=== PATIENT | female | born 1960 | race African-American/Black ===

== ENCOUNTER 2018-06-02 16:53 | Inpatient (IN) | payer MEDICAID ==
[~2018-06-02] VITALS: Ht 172.7 cm; Wt 64.9 kg
[2018-06-02] MEDS ORDERED: HYDRALAZINE HCL 100MG TABLET PO ONE (19:00)
[2018-06-02 19:15] LABS: BASOPHILS % 0.7 % (0.0-2.0); EOSINOPHILS % 1.7 % (0.0-5.0); HEMOGLOBIN. 12.5 g/dL (14.0-18.0); LYMPHOCYTES % 22.2 % (20.0-50.0); MEAN CORPUSCULAR HEMOGLOBIN 27.6 pg (28.0-32.0); MEAN CORPUSCULAR VOLUME 86.4 fL (80.0-94.0); MEAN PLATELET VOLUME 8.7 fl (7.4-10.4); MONOCYTES % 8.4 % (2.0-8.0); PLATELET 325 x1000/uL (130-400); RED BLOOD CELL COUNT 4.52 mill/uL (4.7-6.1); RED CELL DISTRIBUTION WIDTH 18.6 % (11.6-14.6)
[2018-06-02 19:22] LABS: PROTHROMBIN TIME 9.7 sec (9.1-11.1)
[2018-06-02 19:26] LABS: CHLORIDE 111 mEq/L (98-107)
[2018-06-02] MEDS ORDERED: HYDRALAZINE 20MG/ML VIAL IV ONE (20:30)
[2018-06-02] MEDS ORDERED: HYDROCODONE/ACETAMINOPHEN 5/325MG TABLET PO ONE (21:00)
[2018-06-02] MEDS ORDERED: ONDANSETRON HCL 4MG/2ML INJ IV PRN (22:00)
[2018-06-02] MEDS ORDERED: HYDROCODONE/ACETAMINOPHEN 5/325MG TABLET PO PRN (22:00)
[2018-06-02] MEDS ORDERED: ACETAMINOPHEN 325MG TABLET PO PRN (22:00)
[2018-06-02] MEDS ORDERED: DOCUSATE SODIUM 100MG CAPSULE PO PRN (22:00)
[2018-06-02] MEDS ORDERED: IPRATROPIUM/ALBUTEROL 0.5-3(2.5)MG/3ML NEB INH PRN (22:00)
[2018-06-02 23:35] LABS: CREATINE KINASE MB FRACTION 6.5 ng/mL (0.5-3.6)
[2018-06-02 23:40] LABS: PHOSPHORUS 9.4 mg/dL (2.5-4.9)
[2018-06-03] MEDS: CLONIDINE 0.1MG TABLET PO PRN ×2 (05:46→20:36)
[2018-06-03 06:10] LABS: BASOPHILS % 1.5 % (0.0-2.0); EOSINOPHILS % 1.4 % (0.0-5.0); HEMATOCRIT. 39.9 % (36.0-48.0); HEMOGLOBIN. 12.8 g/dL (12.0-16.0); LYMPHOCYTES % 28.3 % (20.0-50.0); MEAN CORPUSCULAR HEMOGLOBIN 27.7 pg (28.0-32.0); MEAN CORPUSCULAR VOLUME 86.4 fL (81.0-99.0); MEAN PLATELET VOLUME 8.6 fl (7.4-10.4); MONOCYTES % 7.5 % (2.0-8.0); NEUTROPHILS % 61.3 % (40.0-76.0); PLATELET 313 x1000/uL (130-400); RED BLOOD CELL COUNT 4.62 mill/uL (4.2-5.4)
[2018-06-03 06:36] LABS: CREATINE KINASE MB FRACTION 8.2 ng/mL (0.5-3.6)
[2018-06-03] MEDS ORDERED: ASPIRIN 81MG TABLET PO ONE (07:15)
[2018-06-03 08:05] VITALS: BP 107/83
[2018-06-03] MEDS: FOLIC ACID/VITAMIN B COMP W-C TABLET PO SCH (09:00)
[2018-06-03 12:00] VITALS: BP 130/69
[2018-06-03] MEDS ORDERED: HEPARIN SODIUM 1,000 UNIT/1ML VIAL IV SCH (12:45)
[2018-06-03] MEDS: CALCIUM ACETATE 667MG CAPSULE PO SCH ×2 (13:10→18:30)
[2018-06-03 16:00] VITALS: BP 143/80
[2018-06-03] MEDS ORDERED: ASPI-1159 PO (17:29)
[2018-06-03] MEDS ORDERED: LISI10TA5 PO (17:29)
[2018-06-03] MEDS ORDERED: SIMV10TA6 PO (17:29)
[2018-06-03] MEDS: INSULIN LISPRO 100 UNITS/ML SUBCUT SCH ×2 (18:10→20:38)
[2018-06-03] MEDS ORDERED: DEXTROSE 50% WATER 50ML SYRINGE IV PRN (18:15)
[2018-06-03 18:51] VITALS: BP 186/84
[2018-06-03 20:00] VITALS: BP 181/81
[2018-06-03] MEDS: BLOOD SUGAR DIAGNOSTIC STRIP TEST SCH (20:25)
[2018-06-03] MEDS: ASPIRIN 81MG TABLET PO SCH (20:36)
[2018-06-04] VITALS (7 sets, daily range): BP systolic 133–191; BP diastolic 57–97
[2018-06-04] MEDS: BLOOD SUGAR DIAGNOSTIC STRIP TEST SCH ×4 (07:19→21:24)
[2018-06-04] MEDS: INSULIN LISPRO 100 UNITS/ML SUBCUT SCH ×4 (08:10→21:31)
[2018-06-04 08:16] LABS: BASOPHILS % 1.2 % (0.0-2.0); HEMATOCRIT. 39.4 % (36.0-48.0); HEMOGLOBIN. 12.7 g/dL (12.0-16.0); LYMPHOCYTES % 31.5 % (20.0-50.0); MEAN CORPUSCULAR HEMOGLOBIN 27.7 pg (28.0-32.0); MEAN CORPUSCULAR VOLUME 85.9 fL (81.0-99.0); MEAN PLATELET VOLUME 8.7 fl (7.4-10.4); MONOCYTES % 8.9 % (2.0-8.0); NEUTROPHILS % 56.4 % (40.0-76.0); PLATELET 291 x1000/uL (130-400); RED BLOOD CELL COUNT 4.58 mill/uL (4.2-5.4); RED CELL DISTRIBUTION WIDTH 18.4 % (11.6-14.6)
[2018-06-04] MEDS: FOLIC ACID/VITAMIN B COMP W-C TABLET PO SCH (09:53)
[2018-06-04] MEDS: CALCIUM ACETATE 667MG CAPSULE PO SCH ×3 (09:53→18:38)
[2018-06-04] MEDS: ASPIRIN 81MG TABLET PO SCH (09:53)
[2018-06-04] MEDS: CLONIDINE 0.1MG TABLET PO PRN ×3 (09:57→19:54)
[2018-06-04] MEDS: DILTIAZEM HCL 30MG TABLET PO SCH ×2 (14:00→21:30)
[2018-06-04] MEDS ORDERED: DILT30TA38 PO (16:23)
[2018-06-04] MEDS ORDERED: NEPVIT PO (16:23)
[2018-06-04] MEDS ORDERED: CALC667C PO (16:23)
[2018-06-04] MEDS ORDERED: HYDRALAZINE 20MG/ML VIAL IV PRN (21:15)
== END 2018-06-04 23:45 | disposition home or self-care (01) | DRG 199 ==
LOC: ER 20:27 → 7WST 20:49 → EDBEDREQ 20:53 → EDBEDREQTM 20:53 → ENRESERV 06-03 07:26
PROVIDERS: ADMIT Internal Medicine; ATTEND Internal Medicine
PROC: 5A1D70Z Performance of Urinary Filtration, Intermittent, Less than 6 Hours Per Day (ICD-10-PCS; principal; 2018-06-03)
DX: I16.0 Hypertensive urgency (principal); E43 Unspecified severe protein-calorie malnutrition; E11.22 Type 2 diabetes mellitus with diabetic chronic kidney disease; E83.39 Other disorders of phosphorus metabolism; E11.51 Type 2 diabetes mellitus with diabetic peripheral angiopathy without gangrene; I08.3 Combined rheumatic disorders of mitral, aortic and tricuspid valves; E87.70 Fluid overload, unspecified; D64.9 Anemia, unspecified; N18.6 End stage renal disease; E78.5 Hyperlipidemia, unspecified; E87.8 Other disorders of electrolyte and fluid balance, not elsewhere classified; F17.200 Nicotine dependence, unspecified, uncomplicated; I13.11 Hypertensive heart and chronic kidney disease without heart failure, with stage 5 chronic kidney disease, or end stage renal disease; Z86.73 Personal history of transient ischemic attack (TIA), and cerebral infarction without residual deficits; Z99.2 Dependence on renal dialysis; Z91.19 Patient's noncompliance with other medical treatment and regimen; Z68.21 Body mass index [BMI] 21.0-21.9, adult; Z71.6 Tobacco abuse counseling
CPT/HCPCS: 36415; 71045; 80048; 80061; 82550; 82553; 82962; 83036; 83735; 84100; 84443; 84484; 93005; 93306; 93970; 96374; 99291; 99406; J0360; J1644; J1815; J7030

== ENCOUNTER 2018-06-22 20:42 | Inpatient (IN) | payer MEDICAID ==
[~2018-06-22] VITALS: Ht 172.7 cm; Wt 63.1 kg
[~2018-06-22 20:42] MED LIST: ASPI-1159 PO; CALC667C PO; DILT30TA38 PO; NEPVIT PO; SIMV10TA6 PO
[2018-06-22] MEDS ORDERED: ONDANSETRON HCL 4MG/2ML INJ IV STA (23:56)
[2018-06-22] MEDS ORDERED: MORPHINE SULFATE 4 MG/ML CPJ (NOT FOR IM USE) IV STA (23:56)
[2018-06-23] MEDS ORDERED: ENALAPRIL 2.5MG/2ML VIAL 2ML IV ONE
[2018-06-23 01:01] LABS: BASOPHILS % 0.6 % (0.0-2.0); EOSINOPHILS % 1.3 % (0.0-5.0); HEMATOCRIT. 37.7 % (36.0-48.0); HEMOGLOBIN. 12.4 g/dL (12.0-16.0); LYMPHOCYTES % 27.3 % (20.0-50.0); MEAN CORPUSCULAR HEMOGLOBIN 28.1 pg (28.0-32.0); MEAN CORPUSCULAR VOLUME 85.5 fL (81.0-99.0); MEAN PLATELET VOLUME 8.7 fl (7.4-10.4); MONOCYTES % 8.4 % (2.0-8.0); NEUTROPHILS % 62.4 % (40.0-76.0); PLATELET 243 x1000/uL (130-400); RED BLOOD CELL COUNT 4.41 mill/uL (4.2-5.4); RED CELL DISTRIBUTION WIDTH 16.9 % (11.6-14.6)
[2018-06-23 01:07] LABS: CHLORIDE 102 mEq/L (98-107)
[2018-06-23] MEDS ORDERED: CLONIDINE 0.2MG TABLET PO ONE (02:45)
[2018-06-23] MEDS ORDERED: HYDROCODONE/ACETAMINOPHEN 5/325MG TABLET PO ONE (02:45)
[2018-06-23 13:30] VITALS: BP 167/84
[2018-06-23 16:00] VITALS: BP 126/80
[2018-06-23] MEDS ORDERED: MAGNESIUM/ALUMINUM HYDROXIDE/SIMETHICONE 30ML UDC PO PRN (16:15)
[2018-06-23] MEDS ORDERED: ONDANSETRON HCL 4MG/2ML INJ IV PRN (16:15)
[2018-06-23] MEDS ORDERED: IPRATROPIUM/ALBUTEROL 0.5-3(2.5)MG/3ML NEB INH PRN (16:15)
[2018-06-23 17:23] VITALS: BP 111/42
[2018-06-23] MEDS: HYDROCODONE/ACETAMINOPHEN 5/325MG TABLET PO PRN (17:27)
[2018-06-23] MEDS: CALCIUM ACETATE 667MG CAPSULE PO SCH (19:08)
[2018-06-23] MEDS: SULFACETAMIDE SODIUM 10% OPHTH DROPS 15ML LEFTEYE SCH ×2 (19:09→21:02)
[2018-06-23] MEDS ORDERED: DEXTROSE 50% WATER 50ML SYRINGE IV PRN (19:45)
[2018-06-23 20:00] VITALS: BP 169/99
[2018-06-23] MEDS: BLOOD SUGAR DIAGNOSTIC STRIP TEST SCH (20:20)
[2018-06-23] MEDS: INSULIN LISPRO 100 UNITS/ML SUBCUT SCH (21:00)
[2018-06-24 00:15] VITALS: BP 123/77
[2018-06-24 04:30] VITALS: BP 154/92
[2018-06-24] MEDS: HYDROCODONE/ACETAMINOPHEN 5/325MG TABLET PO PRN ×2 (05:32→21:06)
[2018-06-24] MEDS: INSULIN LISPRO 100 UNITS/ML SUBCUT SCH ×4 (06:34→21:15)
[2018-06-24] MEDS: BLOOD SUGAR DIAGNOSTIC STRIP TEST SCH ×4 (06:34→21:03)
[2018-06-24 07:07] LABS: BASOPHILS % 0.6 % (0.0-2.0); EOSINOPHILS % 0.9 % (0.0-5.0); HEMATOCRIT. 38.2 % (36.0-48.0); HEMOGLOBIN. 12.5 g/dL (12.0-16.0); LYMPHOCYTES % 36.8 % (20.0-50.0); MEAN CORPUSCULAR HEMOGLOBIN 27.7 pg (28.0-32.0); MEAN CORPUSCULAR VOLUME 84.8 fL (81.0-99.0); MEAN PLATELET VOLUME 8.5 fl (7.4-10.4); MONOCYTES % 9.1 % (2.0-8.0); NEUTROPHILS % 52.6 % (40.0-76.0); PLATELET 240 x1000/uL (130-400); RED CELL DISTRIBUTION WIDTH 16.5 % (11.6-14.6)
[2018-06-24 07:39] LABS: PHOSPHORUS 5.1 mg/dL (2.5-4.9)
[2018-06-24 07:43] LABS: T4 FREE 0.97 ng/dL (0.76-1.46)
[2018-06-24 08:00] VITALS: BP 149/73
[2018-06-24] MEDS: CALCIUM ACETATE 667MG CAPSULE PO SCH ×3 (08:21→17:52)
[2018-06-24] MEDS: FOLIC ACID/VITAMIN B COMP W-C TABLET PO SCH (08:21)
[2018-06-24] MEDS: SULFACETAMIDE SODIUM 10% OPHTH DROPS 15ML LEFTEYE SCH ×4 (08:23→20:57)
[2018-06-24] MEDS: ASPIRIN 81MG TABLET PO SCH (08:23)
[2018-06-24] MEDS ORDERED: DILTIAZEM HCL 30MG TABLET PO SCH (09:00)
[2018-06-24] MEDS ORDERED: DIPHENHYDRAMINE 50MG/ML VIAL IM PRN (11:00)
[2018-06-24] MEDS: DILTIAZEM HCL 30MG TABLET PO SCH ×2 (11:37→17:52)
[2018-06-24 12:00] VITALS: BP 140/67
[2018-06-24 12:04] LABS: HEPATITIS B SURFACE ANTIGEN NEGATIVE
[2018-06-24 16:00] VITALS: BP 154/76
[2018-06-24 19:45] VITALS: BP 139/64
[2018-06-25] VITALS: BP 142/59
[2018-06-25 03:45] VITALS: BP 137/86
[2018-06-25] MEDS: SULFACETAMIDE SODIUM 10% OPHTH DROPS 15ML LEFTEYE SCH ×2 (03:46→09:00)
[2018-06-25] MEDS: HYDROCODONE/ACETAMINOPHEN 5/325MG TABLET PO PRN ×2 (03:52→17:51)
[2018-06-25] MEDS: DILTIAZEM HCL 30MG TABLET PO SCH ×5 (06:28→23:05)
[2018-06-25] MEDS: BLOOD SUGAR DIAGNOSTIC STRIP TEST SCH ×4 (06:30→21:06)
[2018-06-25] MEDS: INSULIN LISPRO 100 UNITS/ML SUBCUT SCH ×4 (06:31→21:19)
[2018-06-25 08:00] VITALS: BP 154/77
[2018-06-25] MEDS: CALCIUM ACETATE 667MG CAPSULE PO SCH ×3 (09:00→17:42)
[2018-06-25] MEDS: FOLIC ACID/VITAMIN B COMP W-C TABLET PO SCH (09:00)
[2018-06-25] MEDS: ASPIRIN 81MG TABLET PO SCH (09:00)
[2018-06-25 12:00] VITALS: BP 120/76
[2018-06-25] MEDS: SULFACETAMIDE SODIUM 10% OPHTH DROPS 15ML BOTHEYE SCH ×3 (14:45→21:06)
[2018-06-25 17:00] VITALS: BP 132/72
[2018-06-25 20:00] VITALS: BP 168/88
[2018-06-26 04:00] VITALS: BP 188/87
[2018-06-26] MEDS: DILTIAZEM HCL 30MG TABLET PO SCH (05:19)
[2018-06-26] MEDS: HYDROCODONE/ACETAMINOPHEN 5/325MG TABLET PO PRN ×2 (06:12→16:29)
[2018-06-26] MEDS: BLOOD SUGAR DIAGNOSTIC STRIP TEST SCH ×4 (06:32→21:37)
[2018-06-26] MEDS: INSULIN LISPRO 100 UNITS/ML SUBCUT SCH ×4 (07:50→21:00)
[2018-06-26 07:54] LABS: BASOPHILS % 0.6 % (0.0-2.0); EOSINOPHILS % 1.1 % (0.0-5.0); HEMATOCRIT. 36.5 % (36.0-48.0); HEMOGLOBIN. 11.9 g/dL (12.0-16.0); LYMPHOCYTES % 25.9 % (20.0-50.0); MEAN CORPUSCULAR HEMOGLOBIN 27.6 pg (28.0-32.0); MEAN PLATELET VOLUME 8.6 fl (7.4-10.4); MONOCYTES % 9.8 % (2.0-8.0); NEUTROPHILS % 62.6 % (40.0-76.0); PLATELET 251 x1000/uL (130-400); RED BLOOD CELL COUNT 4.29 mill/uL (4.2-5.4); RED CELL DISTRIBUTION WIDTH 17.1 % (11.6-14.6)
[2018-06-26 08:00] VITALS: BP 163/76
[2018-06-26] MEDS: ASPIRIN 81MG TABLET PO SCH (08:58)
[2018-06-26] MEDS: FOLIC ACID/VITAMIN B COMP W-C TABLET PO SCH (08:59)
[2018-06-26] MEDS: CALCIUM ACETATE 667MG CAPSULE PO SCH ×3 (08:59→17:37)
[2018-06-26] MEDS: SULFACETAMIDE SODIUM 10% OPHTH DROPS 15ML BOTHEYE SCH ×4 (08:59→21:36)
[2018-06-26] MEDS: LOSARTAN POTASSIUM 50 MG TABLET PO SCH ×2 (10:45→21:36)
[2018-06-26 12:00] VITALS: BP 164/87
[2018-06-26] MEDS: DILTIAZEM HCL 180MG CAPSULE CD 24HR PO SCH (15:51)
[2018-06-26 16:00] VITALS: BP 117/70
[2018-06-26 20:47] VITALS: BP 153/76
[2018-06-26] MEDS: DIPHENHYDRAMINE 50MG/ML VIAL IV PRN (22:21)
[2018-06-27] VITALS: BP 159/77
[2018-06-27 04:00] VITALS: BP 150/72
[2018-06-27] MEDS: BLOOD SUGAR DIAGNOSTIC STRIP TEST SCH ×4 (06:31→21:00)
[2018-06-27] MEDS: INSULIN LISPRO 100 UNITS/ML SUBCUT SCH ×4 (07:50→21:00)
[2018-06-27 08:17] VITALS: BP 144/59
[2018-06-27] MEDS: LOSARTAN POTASSIUM 50 MG TABLET PO SCH ×2 (09:24→22:01)
[2018-06-27] MEDS: CALCIUM ACETATE 667MG CAPSULE PO SCH ×3 (09:24→19:13)
[2018-06-27] MEDS: FOLIC ACID/VITAMIN B COMP W-C TABLET PO SCH (09:24)
[2018-06-27] MEDS: DILTIAZEM HCL 180MG CAPSULE CD 24HR PO SCH (09:24)
[2018-06-27] MEDS: ASPIRIN 81MG TABLET PO SCH (09:24)
[2018-06-27] MEDS: SULFACETAMIDE SODIUM 10% OPHTH DROPS 15ML BOTHEYE SCH ×4 (09:24→22:03)
[2018-06-27 12:03] VITALS: BP 154/85
[2018-06-27] MEDS: HYDROCODONE/ACETAMINOPHEN 5/325MG TABLET PO PRN ×2 (15:00→22:51)
[2018-06-27] MEDS: GENTAMICIN 0.3% OPHTH DROPS 5ML LEFTEYE SCH ×3 (15:00→22:03)
[2018-06-27 16:36] VITALS: BP 141/69
[2018-06-27 20:38] VITALS: BP 165/66
[2018-06-28] VITALS: BP 192/84
[2018-06-28 04:00] VITALS: BP 156/79
[2018-06-28] MEDS: GENTAMICIN 0.3% OPHTH DROPS 5ML LEFTEYE SCH ×6 (04:35→21:34)
[2018-06-28] MEDS: BLOOD SUGAR DIAGNOSTIC STRIP TEST SCH ×4 (07:20→21:00)
[2018-06-28 08:00] VITALS: BP 132/78
[2018-06-28] MEDS: DILTIAZEM HCL 180MG CAPSULE CD 24HR PO SCH (09:00)
[2018-06-28] MEDS: SULFACETAMIDE SODIUM 10% OPHTH DROPS 15ML BOTHEYE SCH ×4 (09:24→21:33)
[2018-06-28] MEDS: LOSARTAN POTASSIUM 50 MG TABLET PO SCH ×2 (09:25→21:32)
[2018-06-28] MEDS: CALCIUM ACETATE 667MG CAPSULE PO SCH ×3 (09:25→18:18)
[2018-06-28] MEDS: FOLIC ACID/VITAMIN B COMP W-C TABLET PO SCH (09:25)
[2018-06-28] MEDS: INSULIN LISPRO 100 UNITS/ML SUBCUT SCH ×4 (09:31→21:56)
[2018-06-28 10:41] LABS: BASOPHILS % 0.9 % (0.0-2.0); EOSINOPHILS % 1.5 % (0.0-5.0); HEMATOCRIT. 38.9 % (36.0-48.0); HEMOGLOBIN. 12.5 g/dL (12.0-16.0); LYMPHOCYTES % 24.1 % (20.0-50.0); MEAN CORPUSCULAR HEMOGLOBIN 27.5 pg (28.0-32.0); MEAN CORPUSCULAR VOLUME 85.3 fL (81.0-99.0); MEAN PLATELET VOLUME 8.9 fl (7.4-10.4); MONOCYTES % 10.4 % (2.0-8.0); NEUTROPHILS % 63.1 % (40.0-76.0); PLATELET 248 x1000/uL (130-400); RED BLOOD CELL COUNT 4.56 mill/uL (4.2-5.4); RED CELL DISTRIBUTION WIDTH 16.9 % (11.6-14.6)
[2018-06-28] MEDS: DIPHENHYDRAMINE 50MG/ML VIAL IV PRN (12:42)
[2018-06-28 16:00] VITALS: BP 130/79
[2018-06-28] MEDS: PREDNISOLONE ACETATE 1% OPHTH DROPS 1ML LEFTEYE SCH (18:13)
[2018-06-28] MEDS: ASPIRIN 81MG TABLET PO SCH (18:18)
[2018-06-28 20:00] VITALS: BP 168/96
[2018-06-29] VITALS (7 sets, daily range): BP systolic 111–164; BP diastolic 67–87
[2018-06-29] MEDS: PREDNISOLONE ACETATE 1% OPHTH DROPS 1ML LEFTEYE SCH ×4 (01:35→17:46)
[2018-06-29] MEDS: GENTAMICIN 0.3% OPHTH DROPS 5ML LEFTEYE SCH ×6 (06:36→20:40)
[2018-06-29] MEDS: BLOOD SUGAR DIAGNOSTIC STRIP TEST SCH ×4 (06:37→20:44)
[2018-06-29] MEDS: INSULIN LISPRO 100 UNITS/ML SUBCUT SCH ×4 (07:50→20:44)
[2018-06-29] MEDS: DILTIAZEM HCL 180MG CAPSULE CD 24HR PO SCH (08:57)
[2018-06-29] MEDS: ASPIRIN 81MG TABLET PO SCH (08:57)
[2018-06-29] MEDS: CALCIUM ACETATE 667MG CAPSULE PO SCH ×3 (08:57→17:45)
[2018-06-29] MEDS: LOSARTAN POTASSIUM 50 MG TABLET PO SCH ×2 (08:57→20:39)
[2018-06-29] MEDS: FOLIC ACID/VITAMIN B COMP W-C TABLET PO SCH (08:58)
[2018-06-29] MEDS: SULFACETAMIDE SODIUM 10% OPHTH DROPS 15ML BOTHEYE SCH ×4 (08:58→20:40)
[2018-06-29] MEDS: ACETAMINOPHEN 325MG TABLET PO PRN (14:35)
[2018-06-29] MEDS: HYDROCODONE/ACETAMINOPHEN 5/325MG TABLET PO PRN ×2 (18:17→23:46)
[2018-06-30] VITALS (7 sets, daily range): BP systolic 138–177; BP diastolic 69–96
[2018-06-30] MEDS: CLONIDINE 0.1MG TABLET PO PRN (01:01)
[2018-06-30] MEDS: GENTAMICIN 0.3% OPHTH DROPS 5ML LEFTEYE SCH ×6 (01:03→20:43)
[2018-06-30] MEDS: PREDNISOLONE ACETATE 1% OPHTH DROPS 1ML LEFTEYE SCH ×4 (01:03→17:52)
[2018-06-30] MEDS: BLOOD SUGAR DIAGNOSTIC STRIP TEST SCH ×4 (06:38→21:12)
[2018-06-30] MEDS: INSULIN LISPRO 100 UNITS/ML SUBCUT SCH ×4 (07:50→21:11)
[2018-06-30] MEDS: DILTIAZEM HCL 180MG CAPSULE CD 24HR PO SCH (09:00)
[2018-06-30] MEDS: LOSARTAN POTASSIUM 50 MG TABLET PO SCH ×2 (09:00→20:41)
[2018-06-30] MEDS: ASPIRIN 81MG TABLET PO SCH (09:42)
[2018-06-30] MEDS: CALCIUM ACETATE 667MG CAPSULE PO SCH ×3 (09:42→17:52)
[2018-06-30] MEDS: FOLIC ACID/VITAMIN B COMP W-C TABLET PO SCH (09:42)
[2018-06-30] MEDS: SULFACETAMIDE SODIUM 10% OPHTH DROPS 15ML BOTHEYE SCH ×4 (09:43→20:44)
[2018-06-30 11:49] LABS: HEMATOCRIT. 37.7 % (36.0-48.0); HEMOGLOBIN. 12.3 g/dL (12.0-16.0); LYMPHOCYTES % 27.4 % (20.0-50.0); MEAN CORPUSCULAR HEMOGLOBIN 27.5 pg (28.0-32.0); MEAN CORPUSCULAR VOLUME 84.3 fL (81.0-99.0); MEAN PLATELET VOLUME 8.7 fl (7.4-10.4); MONOCYTES % 7.8 % (2.0-8.0); NEUTROPHILS % 62.8 % (40.0-76.0); PLATELET 201 x1000/uL (130-400); RED BLOOD CELL COUNT 4.47 mill/uL (4.2-5.4); RED CELL DISTRIBUTION WIDTH 16.4 % (11.6-14.6)
[2018-06-30] MEDS: HYDROCODONE/ACETAMINOPHEN 5/325MG TABLET PO PRN ×2 (14:32→20:42)
[2018-07-01] VITALS: BP 127/63
[2018-07-01] MEDS: DOCUSATE SODIUM 100MG CAPSULE PO PRN ×3 (01:40→22:47)
[2018-07-01] MEDS: GENTAMICIN 0.3% OPHTH DROPS 5ML LEFTEYE SCH ×6 (01:41→20:59)
[2018-07-01] MEDS: PREDNISOLONE ACETATE 1% OPHTH DROPS 1ML LEFTEYE SCH ×4 (01:41→18:08)
[2018-07-01 04:00] VITALS: BP 148/86
[2018-07-01] MEDS: CALCIUM ACETATE 667MG CAPSULE PO SCH ×3 (07:05→18:08)
[2018-07-01] MEDS: BLOOD SUGAR DIAGNOSTIC STRIP TEST SCH ×4 (07:11→20:35)
[2018-07-01] MEDS: INSULIN LISPRO 100 UNITS/ML SUBCUT SCH ×4 (07:11→21:01)
[2018-07-01 08:00] VITALS: BP 177/78
[2018-07-01] MEDS: LOSARTAN POTASSIUM 50 MG TABLET PO SCH ×2 (09:08→21:00)
[2018-07-01] MEDS: FOLIC ACID/VITAMIN B COMP W-C TABLET PO SCH (09:08)
[2018-07-01] MEDS: SULFACETAMIDE SODIUM 10% OPHTH DROPS 15ML BOTHEYE SCH ×4 (09:08→20:59)
[2018-07-01] MEDS: DILTIAZEM HCL 180MG CAPSULE CD 24HR PO SCH (09:08)
[2018-07-01] MEDS: ASPIRIN 81MG TABLET PO SCH (09:08)
[2018-07-01 12:45] LABS: BASOPHILS % 0.8 % (0.0-2.0); EOSINOPHILS % 0.9 % (0.0-5.0); HEMATOCRIT. 37.5 % (36.0-48.0); LYMPHOCYTES % 21.3 % (20.0-50.0); MEAN CORPUSCULAR HEMOGLOBIN 27.2 pg (28.0-32.0); MEAN CORPUSCULAR VOLUME 85.2 fL (81.0-99.0); MEAN PLATELET VOLUME 8.8 fl (7.4-10.4); MONOCYTES % 8.4 % (2.0-8.0); NEUTROPHILS % 68.6 % (40.0-76.0); PLATELET 239 x1000/uL (130-400); RED CELL DISTRIBUTION WIDTH 16.6 % (11.6-14.6)
[2018-07-01 16:00] VITALS: BP_SYST 147; BP_SYST 165; BP_DIAS 75; BP_DIAS 88
[2018-07-01] MEDS: HYDROCODONE/ACETAMINOPHEN 5/325MG TABLET PO PRN ×2 (16:28→22:48)
[2018-07-01 20:00] VITALS: BP 131/74
[2018-07-01 20:02] VITALS: BP 131/74
[2018-07-02] VITALS: BP 166/67
[2018-07-02] MEDS: PREDNISOLONE ACETATE 1% OPHTH DROPS 1ML LEFTEYE SCH ×4 (00:43→17:47)
[2018-07-02 00:50] VITALS: BP 159/72
[2018-07-02] MEDS: GENTAMICIN 0.3% OPHTH DROPS 5ML LEFTEYE SCH ×6 (02:12→22:08)
[2018-07-02 04:00] VITALS: BP 131/75
[2018-07-02] MEDS: BLOOD SUGAR DIAGNOSTIC STRIP TEST SCH ×4 (06:06→20:54)
[2018-07-02 06:34] LABS: BASOPHILS % 0.9 % (0.0-2.0); EOSINOPHILS % 0.9 % (0.0-5.0); HEMATOCRIT. 35.1 % (36.0-48.0); HEMOGLOBIN. 11.3 g/dL (12.0-16.0); MEAN CORPUSCULAR HEMOGLOBIN 27.4 pg (28.0-32.0); MEAN CORPUSCULAR VOLUME 84.8 fL (81.0-99.0); MEAN PLATELET VOLUME 8.9 fl (7.4-10.4); MONOCYTES % 10.5 % (2.0-8.0); NEUTROPHILS % 58.7 % (40.0-76.0); PLATELET 238 x1000/uL (130-400); RED BLOOD CELL COUNT 4.14 mill/uL (4.2-5.4); RED CELL DISTRIBUTION WIDTH 16.8 % (11.6-14.6)
[2018-07-02] MEDS: INSULIN LISPRO 100 UNITS/ML SUBCUT SCH ×4 (07:47→20:56)
[2018-07-02 08:00] VITALS: BP 122/56
[2018-07-02] MEDS: DILTIAZEM HCL 180MG CAPSULE CD 24HR PO SCH (08:16)
[2018-07-02] MEDS: ASPIRIN 81MG TABLET PO SCH (08:16)
[2018-07-02] MEDS: LOSARTAN POTASSIUM 50 MG TABLET PO SCH ×2 (08:16→20:54)
[2018-07-02] MEDS: FOLIC ACID/VITAMIN B COMP W-C TABLET PO SCH (08:16)
[2018-07-02] MEDS: CALCIUM ACETATE 667MG CAPSULE PO SCH ×3 (08:16→17:47)
[2018-07-02] MEDS: SULFACETAMIDE SODIUM 10% OPHTH DROPS 15ML BOTHEYE SCH ×2 (08:17→13:04)
[2018-07-02] MEDS: HYDROCODONE/ACETAMINOPHEN 5/325MG TABLET PO PRN (16:14)
[2018-07-02] MEDS: CLONIDINE 0.1MG TABLET PO PRN (16:46)
[2018-07-02 20:00] VITALS: BP 169/82
[2018-07-03] VITALS: BP 180/74
[2018-07-03] MEDS: CLONIDINE 0.1MG TABLET PO PRN (00:52)
[2018-07-03] MEDS: PREDNISOLONE ACETATE 1% OPHTH DROPS 1ML LEFTEYE SCH ×4 (00:52→18:17)
[2018-07-03] MEDS: GENTAMICIN 0.3% OPHTH DROPS 5ML LEFTEYE SCH ×5 (01:00→22:07)
[2018-07-03 04:00] VITALS: BP 141/77
[2018-07-03] MEDS: BLOOD SUGAR DIAGNOSTIC STRIP TEST SCH ×4 (06:20→20:49)
[2018-07-03 06:27] LABS: BASOPHILS % 0.5 % (0.0-2.0); EOSINOPHILS % 1.1 % (0.0-5.0); HEMATOCRIT. 32.5 % (36.0-48.0); HEMOGLOBIN. 10.5 g/dL (12.0-16.0); LYMPHOCYTES % 32.1 % (20.0-50.0); MEAN CORPUSCULAR HEMOGLOBIN 27.4 pg (28.0-32.0); MEAN CORPUSCULAR VOLUME 84.9 fL (81.0-99.0); MEAN PLATELET VOLUME 9.1 fl (7.4-10.4); MONOCYTES % 9.9 % (2.0-8.0); NEUTROPHILS % 56.4 % (40.0-76.0); PLATELET 200 x1000/uL (130-400); RED BLOOD CELL COUNT 3.83 mill/uL (4.2-5.4); RED CELL DISTRIBUTION WIDTH 16.5 % (11.6-14.6)
[2018-07-03] MEDS: INSULIN LISPRO 100 UNITS/ML SUBCUT SCH ×4 (07:21→20:49)
[2018-07-03] MEDS: CALCIUM ACETATE 667MG CAPSULE PO SCH ×3 (09:33→18:16)
[2018-07-03] MEDS: LOSARTAN POTASSIUM 50 MG TABLET PO SCH ×2 (09:33→20:49)
[2018-07-03] MEDS: FOLIC ACID/VITAMIN B COMP W-C TABLET PO SCH (09:33)
[2018-07-03] MEDS: ASPIRIN 81MG TABLET PO SCH (09:33)
[2018-07-03] MEDS: DILTIAZEM HCL 180MG CAPSULE CD 24HR PO SCH (09:34)
[2018-07-03] MEDS ORDERED: DEXTROSE 50% WATER 50ML SYRINGE IV NR (09:54)
[2018-07-03] MEDS ORDERED: SODIUM BICARBONATE 8.4% 1 MEQ/ML 50ML SYR IV NR ×2 (09:54→21:35)
[2018-07-03] MEDS ORDERED: INSULIN REGULAR (HUMULIN R) UD 100 UNITS/ML SYR IV NR (10:00)
[2018-07-03 11:33] VITALS: BP 151/82
[2018-07-03] MEDS ORDERED: ALTEPLASE 2MG/VIAL ITC NR (14:00)
[2018-07-03] MEDS ORDERED: ALTEPLASE 2MG/VIAL ITC ONE ×2 (14:00)
[2018-07-03 16:00] VITALS: BP 161/71
[2018-07-03] MEDS: HYDROCODONE/ACETAMINOPHEN 5/325MG TABLET PO PRN (19:48)
[2018-07-03 20:00] VITALS: BP 186/78
[2018-07-03] MEDS ORDERED: CALCIUM CHLORIDE 1,000 MG in DEXT 5% WATER 90 ML IV NR (22:30)
[2018-07-04] VITALS: BP 184/93
[2018-07-04] MEDS: PREDNISOLONE ACETATE 1% OPHTH DROPS 1ML LEFTEYE SCH ×2 (00:54→06:04)
[2018-07-04] MEDS: CLONIDINE 0.1MG TABLET PO PRN (00:54)
[2018-07-04] MEDS: GENTAMICIN 0.3% OPHTH DROPS 5ML LEFTEYE SCH ×3 (01:00→08:59)
[2018-07-04] MEDS: DIPHENHYDRAMINE 50MG/ML VIAL IV PRN (01:29)
[2018-07-04 04:00] VITALS: BP 167/76
[2018-07-04] MEDS: BLOOD SUGAR DIAGNOSTIC STRIP TEST SCH (06:20)
[2018-07-04 06:52] LABS: BASOPHILS % 0.8 % (0.0-2.0); EOSINOPHILS % 0.8 % (0.0-5.0); HEMATOCRIT. 32.1 % (36.0-48.0); HEMOGLOBIN. 10.4 g/dL (12.0-16.0); LYMPHOCYTES % 26.9 % (20.0-50.0); MEAN CORPUSCULAR HEMOGLOBIN 27.3 pg (28.0-32.0); MEAN CORPUSCULAR VOLUME 84.4 fL (81.0-99.0); MEAN PLATELET VOLUME 8.6 fl (7.4-10.4); MONOCYTES % 8.3 % (2.0-8.0); NEUTROPHILS % 63.2 % (40.0-76.0); PLATELET 193 x1000/uL (130-400); RED BLOOD CELL COUNT 3.81 mill/uL (4.2-5.4); RED CELL DISTRIBUTION WIDTH 16.3 % (11.6-14.6)
[2018-07-04] MEDS: FOLIC ACID/VITAMIN B COMP W-C TABLET PO SCH (08:58)
[2018-07-04] MEDS: CALCIUM ACETATE 667MG CAPSULE PO SCH (08:59)
[2018-07-04] MEDS: ASPIRIN 81MG TABLET PO SCH (08:59)
[2018-07-04] MEDS: ACETAMINOPHEN 325MG TABLET PO PRN (09:05)
[2018-07-04] MEDS: INSULIN LISPRO 100 UNITS/ML SUBCUT SCH (09:06)
[2018-07-04 10:28] VITALS: BP 160/79
== END 2018-07-04 11:05 | disposition home or self-care (01) | DRG 282 ==
LOC: ER 20:42 → 6WST 06-23 02:59 → EDBEDREQTM 06-23 03:01 → EDBEDREQ 06-23 03:01 → ENRESERV 06-23 12:10
PROVIDERS: ADMIT Internal Medicine; ATTEND Internal Medicine
PROC: 5A1D70Z Performance of Urinary Filtration, Intermittent, Less than 6 Hours Per Day (ICD-10-PCS; 2018-06-23)
PROC: 5A1D70Z Performance of Urinary Filtration, Intermittent, Less than 6 Hours Per Day (ICD-10-PCS; principal; 2018-06-26)
PROC: 5A1D70Z Performance of Urinary Filtration, Intermittent, Less than 6 Hours Per Day (ICD-10-PCS; 2018-06-28)
PROC: 5A1D70Z Performance of Urinary Filtration, Intermittent, Less than 6 Hours Per Day (ICD-10-PCS; 2018-06-30)
DX: K85.90 Acute pancreatitis without necrosis or infection, unspecified (principal); E43 Unspecified severe protein-calorie malnutrition; E11.22 Type 2 diabetes mellitus with diabetic chronic kidney disease; E11.51 Type 2 diabetes mellitus with diabetic peripheral angiopathy without gangrene; I13.11 Hypertensive heart and chronic kidney disease without heart failure, with stage 5 chronic kidney disease, or end stage renal disease; E87.2 Acidosis; E87.8 Other disorders of electrolyte and fluid balance, not elsewhere classified; N18.6 End stage renal disease; Z99.2 Dependence on renal dialysis; I16.0 Hypertensive urgency; R00.1 Bradycardia, unspecified; H10.89 Other conjunctivitis; E78.5 Hyperlipidemia, unspecified; E83.39 Other disorders of phosphorus metabolism; F17.210 Nicotine dependence, cigarettes, uncomplicated; G43.909 Migraine, unspecified, not intractable, without status migrainosus; Z59.0 Homelessness; Z79.82 Long term (current) use of aspirin; Z86.73 Personal history of transient ischemic attack (TIA), and cerebral infarction without residual deficits; Z90.710 Acquired absence of both cervix and uterus; Z79.899 Other long term (current) drug therapy; Z89.422 Acquired absence of other left toe(s); Z89.421 Acquired absence of other right toe(s); Z68.21 Body mass index [BMI] 21.0-21.9, adult
CPT/HCPCS: 36415; 71045; 74176; 80048; 80051; 80061; 82040; 82962; 83605; 84100; 84132; 84439; 84443; 84484; 86803; 87340; 93005; 93970; 96374; 96375; 97162; 99291; C1893; J1200; J1815; J2270; J2405; J2997; J3490; J7030; J7040; J7050; J7060

== ENCOUNTER 2019-06-09 14:21 | Emergency (ER) | payer MEDICAID ==
[~2019-06-09] VITALS: Ht 182.9 cm; Wt 64.0 kg
[~2019-06-09 14:21] MED LIST changes: -ASPI-1159 PO; +ASPI-1393 PO
[2019-06-09 15:46] LABS: BASOPHILS % 0.9 % (0.0-2.0); EOSINOPHILS % 4.2 % (0.0-5.0); HEMATOCRIT. 32.8 % (36.0-48.0); HEMOGLOBIN. 10.6 g/dL (12.0-16.0); LYMPHOCYTES % 34.3 % (20.0-50.0); MEAN CORPUSCULAR HEMOGLOBIN 28.2 pg (28.0-32.0); MEAN CORPUSCULAR VOLUME 87.3 fL (81.0-99.0); MEAN PLATELET VOLUME 8.4 fl (7.4-10.4); MONOCYTES % 14.8 % (2.0-8.0); NEUTROPHILS % 45.8 % (40.0-76.0); PLATELET 286 x1000/uL (130-400); RED BLOOD CELL COUNT 3.76 mill/uL (4.2-5.4); RED CELL DISTRIBUTION WIDTH 15.9 % (11.6-14.6)
[2019-06-09 15:50] LABS: CHLORIDE 99 mEq/L (98-107)
[2019-06-09] MEDS ORDERED: IVERMECTIN 3 MG TABLET PO ONE (16:00)
[2019-06-09] MEDS ORDERED: CETIRIZINE 10MG TABLET PO SCH (16:00)
[2019-06-09] MEDS ORDERED: DILTIAZEM HCL 30MG TABLET PO ONE (17:00)
[2019-06-09] MEDS ORDERED: PERMETHRIN 5% CREAM 60GM TOP ONE (20:45)
[2019-06-09 22:57] VITALS: BP 175/100
== END 2019-06-09 23:01 | disposition home or self-care (01) ==
LOC: ER 14:37
DX: T78.40XA Allergy, unspecified, initial encounter (principal); B86 Scabies; L29.9 Pruritus, unspecified; R41.82 Altered mental status, unspecified; I12.0 Hypertensive chronic kidney disease with stage 5 chronic kidney disease or end stage renal disease; E11.22 Type 2 diabetes mellitus with diabetic chronic kidney disease; N18.6 End stage renal disease; Z99.2 Dependence on renal dialysis; Z79.899 Other long term (current) drug therapy; Z90.710 Acquired absence of both cervix and uterus; Z79.82 Long term (current) use of aspirin; Z86.73 Personal history of transient ischemic attack (TIA), and cerebral infarction without residual deficits; Y92.89 Other specified places as the place of occurrence of the external cause
CPT/HCPCS: 36415; 82962; 84484; 93005; 99284